=== PATIENT | male | born 1955 | race Asian ===

== ENCOUNTER 2021-06-26 14:19 | Emergency (ER) | payer OTHER ==
[~2021-06-26] VITALS: Ht 175.3 cm; Wt 88.9 kg
[2021-06-26 14:20] VITALS: BP 111/64
[2021-06-26] MEDS ORDERED: ACETAMINOPHEN EXTRA STRENGTH 500 MG TAB PO ONE (14:45)
[2021-06-26] MEDS ORDERED: LIDOCAINE 2% 1000 MG/50 ML VIAL INJ ONE (14:50)
--- NOTE | 2021-06-26 15:36 | NUR ---
65/M BIBA FROM [facility] S/P FALL FROM HIS WHEELCHAIR. PER EMS, STAFF CALLED 911 STATING PATIENT FELL ASLEEP WHILE SITTING IN HIS WHEELCHAIR AND FELL FORWARD. PATIENT BROUGHT IN WITH C COLLAR IN PLACE, LACERATION NOTED TO FOREHEAD, BLEEDING CONTROLLED AT THIS TIME. PATIENT DENIES LOC, NECK PAIN, N/V OR DIZZINESS. REPORTS 4/10 PAIN THAT WORSENS WITH TOUCH TO FORHEAD.
--- NOTE | 2021-06-26 15:48 | NUR ---
PA LARKIN BEDSIDE FOR SUTURE REPAIR
--- NOTE | 2021-06-26 15:53 | NUR ---
C-spine cleared by Dr. Alejandro. C-collar removed.
[2021-06-26] MEDS ORDERED: ACET-2619 PO (15:56)
--- NOTE | 2021-06-26 15:58 | NUR ---
PT'S LAC CLEANED WITH NORMAL SALINE AND DRESSED WITH NON-ADHERENT AND TAPE.
--- NOTE | 2021-06-26 16:52 | NUR ---
SPOKE WITH PATIENTS SON ELIZA AND GIVEN UPDATE ON PATIENTS CONDITION
--- NOTE | 2021-06-26 18:33 | NUR ---
[facility]SP[facility] BEDSIDE TO TRANSPORT PATIENT BACK TO FACILITY
--- NOTE | 2021-06-26 18:35 | NUR ---
CALLED [facility] AND [facility], REPORT GIVEN ON PATIENT RETURNING TO FACILITY.
[2021-06-26 18:38] VITALS: BP 134/61
--- NOTE | 2021-06-26 18:38 | NUR ---
Patient discharged with v/s stable. Written and verbal after care instructions ABOUT LACERATION CARE AND HEAD INJURY given and explained. Patient alert, oriented and verbalized understanding of instructions. Ambulance Transport with to senior living. All questions addressed prior to discharge. ID band removed. Patient advised to follow up with PMD. Rx of TYLENOL given. Patient educated on indication of medication including possible reaction and side effects. Opportunity to ask questions provided and answered.
== END 2021-06-26 18:38 | disposition home or self-care (01) ==
LOC: MED 14:19
DX: S01.81XA Laceration without foreign body of other part of head, initial encounter (principal); Z79.899 Other long term (current) drug therapy; W01.198A Fall on same level from slipping, tripping and stumbling with subsequent striking against other object, initial encounter; Y93.84 Activity, sleeping; Y92.89 Other specified places as the place of occurrence of the external cause; Y99.8 Other external cause status
CPT/HCPCS: 70450; 72125; 90471; 90715; 99284; J2001